=== PATIENT | male | born 2000 | race Caucasian/White ===

== ENCOUNTER 2021-03-16 18:54 | Emergency (ER) | payer BC ==
[~2021-03-16] VITALS: Ht 198.1 cm; Wt 90.9 kg
[2021-03-16 20:01] LABS: BASO # 0.1 K/mm3 (0.0-0.2); BASO % 0.6 % (0.0-2.0); EOS # 0.3 K/mm3 (0.0-0.7); EOS % 3.6 % (0-4.0); GRAN # 6.4 K/mm3 (1.4-6.5); GRAN % 66.9 % (42.2-75.2); HEMATOCRIT 46.1 % (36.0-47.0); HEMOGLOBIN 15.1 g/dl (12.5-16.1); LYMPH # 1.9 K/mm3 (1.2-3.4); LYMPH % 20.2 % (20.0-51.0); MEAN CELL VOLUME 91 fl (80.0-95.0); MEAN CORPUSCULAR HEMOGLOBIN 30 pg (26.0-32.0); MEAN CORPUSCULAR HGB CONC 33 g/dl (33.0-37.0); MONO # 0.8 K/mm3 (0.1-0.6); MONO % 8.4 % (1.7-9.3); PLATELET COUNT 275 K/mm3 (130-400); RED BLOOD COUNT 5.08 M/mm3 (4.20-5.60); REDCELL DISTRIBUTION WIDTH-CV 13.1 % (11.5-14.5)
[2021-03-16 20:19] LABS: ALANINE AMINOTRANSFERASE 19 U/L (0-55); ALBUMIN 4.1 gm/dL (3.5-5.0); ALKALINE PHOSPHATASE 131 U/L (40-150); ANION GAP 10 mmol/L (7-16); AST,SGOT 15 U/L (5-34); BILIRUBIN,TOTAL 0.4 mg/dL (0.2-1.2); BLOOD UREA NITROGEN 18 mg/dL (9-21); CALCIUM 9.6 mg/dL (8.4-10.2); CARBON DIOXIDE 25 mmol/L (22-29); CHLORIDE 105 mmol/L (98-107); CREATININE, serum 0.84 mg/dL (0.72-1.25); GLUCOSE 107 mg/dL (70-99); LIPASE 28 U/L (8-78); POTASSIUM 3.7 mmol/L (3.5-4.5); SODIUM 140 mmol/L (136-145)
[2021-03-16 20:27] LABS: TROPONIN-I < 0.010 ng/mL (0.00-0.033)
[2021-03-16 21:24] LABS: MONOSCREEN NEGATIVE
[2021-03-16] MEDS ORDERED: PROTONIX 40MG T40 MG PO (21:37)
[2021-03-16] MEDS ORDERED: CARAFATE 1GM1 G PO (21:38)
[2021-03-16 22:31] VITALS: BP 139/70; PULSE 74; TEMP 98.7
== END 2021-03-16 22:30 | disposition home or self-care (01) ==
LOC: COL.ER 18:54
PROVIDERS: Physician Assistant
DX: R13.10 Dysphagia, unspecified (principal); R10.13 Epigastric pain
CPT/HCPCS: J2405; J7030

== ENCOUNTER 2021-05-07 12:05 | Emergency (ER) | payer BC ==
[~2021-05-07] VITALS: Ht 198.1 cm; Wt 90.9 kg
[~2021-05-07 12:05] MED LIST: CARAFATE 1GM1 G PO; PROTONIX 40MG T40 MG PO
[2021-05-07 12:31] VITALS: TEMP 98.5
[2021-05-07] MEDS ORDERED: FLEXERIL 1010 MG/TAB PO (13:18)
[2021-05-07] MEDS ORDERED: NAPROSYN500 MG PO (13:18)
[2021-05-07 13:38] VITALS: BP 122/86; PULSE 64
== END 2021-05-07 13:38 | disposition home or self-care (01) ==
LOC: COL.ER 12:05
DX: M54.41 Lumbago with sciatica, right side (principal)
CPT/HCPCS: J1885